=== PATIENT | female | born 1990 | race Caucasian/White ===

== ENCOUNTER 2017-01-24 18:01 | Emergency (ER) | payer OTHER ==
[2017-01-24 18:09] VITALS: BP 119/68; BMI 29.9
--- NOTE | 2017-01-24 18:10 | PDOC ---
History of Present Illness - General Chief Complaint: Sore Throat Stated Complaint: sore throat Time Seen by Provider: 01/24/17 18:10 - History of Present Illness Initial Comments: Chief complaint: Sore throat History of present illness: Patient with sore throat and difficulty swallowing for several days. and other family members with similar illness last week. Limited by mouth intake. Review of systems: No drooling, difficulty breathing, nausea or vomiting. No fevers/chills, chest pain, shortness of breath, abdominal pain. No visual or focal neurologic symptoms. Past medical history: Healthy female without significant contributing factors Social/family history reviewed and noncontributory Physical exam: Alert and oriented well-developed well-nourished no acute distress cooperative Afebrile, vital signs normal Appears mildly dehydrated with dry mucous membranes, but skin turgor is adequate. PERRLA, fundi benign, ENT exam reveals only mildly erythematous oropharynx. There is no swelling or mass in the peritonsillar or retropharyngeal area suggestive of an abscess. Neck supple without bruit mass or nodes Chest clear CV regular without murmur rub or gallop Abdomen benign Neurological intact Skin clear, no rash Impression: Sore throat, difficulty swallowing, by history, decreased by mouth intake. Mild dehydration Plan: Intravenous hydration, anti-inflammatory, throat culture and antibiotic treatment if indicated. Continued observation. Past History - Past Medical History Allergies/Adverse Reactions: Allergies Allergy/AdvReac Type Severity Reaction Status Date / Time No Known Allergies Allergy Verified 01/24/17 18:02 Home Medications: Ambulatory Orders Ibuprofen Oral Suspension [Motrin Oral Suspension -] 400 mg PO Q6H PRN #140 ml 01/24/17 Penicillin V Potassium [Pen Vee K -] 500 mg PO TID #30 tablet 01/24/17 Cancer: No CHF: No HTN: No Kidney Stones: No Liver Disease: No - Psycho/Social/Smoking Cessation Hx Anxiety: No Suicidal Ideation: No Smoking Status: No Smoking History: Never smoked Have you smoked in the past 12 months: No Number of Cigarettes Smoked Daily: 0 Information on smoking cessation initiated: No Hx Alcohol Use: No Drug/Substance Use Hx: No Substance Use Type: None *Physical Exam - Vital Signs Last Vital Signs Temp Pulse Resp BP Pulse Ox 99.1 F 110 H 18 119/68 98 01/24/17 18:02 01/24/17 18:02 01/24/17 18:02 01/24/17 18:02 01/24/17 18:02 Medical Decision Making - Medical Decision Making Strep culture is pending. Patient receiving intravenous fluids. Toradol seems to have eased the pain. Signed out to Dr. Guerra at 7 PM pending throat culture results and further therapy. *DC/Admit/Observation/Transfer Diagnosis at time of Disposition: Strep pharyngitis - Discharge Dispostion Disposition: HOME Condition at time of disposition: Stable - Prescriptions Prescriptions: Ibuprofen Oral Suspension [Motrin Oral Suspension -] 400 mg PO Q6H PRN #140 ml PRN Reason: Pain Penicillin V Potassium [Pen Vee K -] 500 mg PO TID #30 tablet - Patient Instructions Printed Discharge Instructions: Strep Throat Additional Instructions: Penicillin VK 500 mg 3 times a day for 10 days Motrin suspension 400 mg up to 4 times a day as needed for pain/fever Drink plenty of fluids Follow-up with your general doctor within the next 2-3 days Return to ER if you have persistent difficulty swallowing/severe pain/fever
[2017-01-24] MEDS ORDERED: SODIUM CHLORIDE 1,000 ML IV STA (18:41)
[2017-01-24] MEDS ORDERED: KETOROLAC TROMETHAMINE 30 MG/1 ML VIAL IVPUSH ONE (18:42)
[2017-01-24] MEDS ORDERED: KETOROLAC TROMETHAMINE 30 MG/1 ML VIAL ONE (18:47)
[2017-01-24 18:51] LABS: URINE APPEARANCE Clear; URINE BILIRUBIN Negative (NEGATIVE); URINE GLUCOSE (UA) Negative (NEGATIVE); URINE KETONE Trace (NEGATIVE); URINE LEUK ESTERASE Negative (NEGATIVE); URINE NITRITE Negative (NEGATIVE); URINE PROTEIN Trace (NEGATIVE); URINE UROBILINOGEN 0.2 E.U/dl (0.2-1.0)
[2017-01-24 18:58] LABS: URINE BLOOD 2+ (NEGATIVE)
[2017-01-24 18:59] LABS: URINE COLOR YELLOW
[2017-01-24 19:00] LABS: URINE BACTERIA FEW /hpf (NEGATIVE)
[2017-01-24] MEDS ORDERED: AMOXICILLIN 500 MG CAPSULE (FP) PO ONE (19:38)
[2017-01-24] MEDS ORDERED: AMOXICILLIN 250 MG CAPSULE ONE (19:41)
--- NOTE | 2017-01-24 19:46 | PDOC ---
*Physical Exam - Vital Signs Last Vital Signs Temp Pulse Resp BP Pulse Ox 99.1 F 110 H 18 119/68 98 01/24/17 18:02 01/24/17 18:02 01/24/17 18:02 01/24/17 18:02 01/24/17 18:02 ED Treatment Course - ADDITIONAL ORDERS Additional order review: Laboratory Results 01/24/17 18:44 Urine Color Yellow Urine Appearance Clear Urine pH 6.0 Ur Specific [place] 1.015 Urine Protein Trace Urine Glucose (UA) Negative Urine Ketones Trace Urine Blood 2+ H Urine Nitrite Negative Urine Bilirubin Negative Urine Urobilinogen 0.2 e.u/dl Ur Leukocyte Esterase Negative Urine RBC 5-10 Urine WBC 2-4 Ur Epithelial Cells Few Urine Bacteria Few Urine HCG, Qual Negative 01/24/17 18:44 Group A Strep Rapid Antigen - Final Throat - Medications Given in the ED: ED Medications Discontinued Medications Generic Name Dose Route Start Last Admin Trade Name Freq PRN Reason Stop Dose Admin Ketorolac Tromethamine 30 mg 01/24/17 18:42 01/24/17 18:53 Toradol Injection - IVPUSH 01/24/17 18:43 30 mg ONCE ONE Administration Progress Note - Progress Note Progress Note: Care of this patient received from Dr. Finch. Quick strep positive. Results discussed with the patient and her . Patient feeling much better after a liter of normal saline and 30 mg of Toradol IV. She states she is able to swallow much more easily after medication and hydration. First dose of 500 mg of amoxicillin given here. Patient asked for prescription for Motrin suspension which was transmitted to her pharmacy. Also, prescription for Penicillin VK 500 mg tid for 10 days sent to her pharmacy. Patient knows that she should return to the emergency room if she has worsening pain/fever or has drooling/severe difficulty swallowing. *DC/Admit/Observation/Transfer Diagnosis at time of Disposition: Strep pharyngitis - Discharge Dispostion Disposition: HOME Condition at time of disposition: Stable - Prescriptions Prescriptions: Ibuprofen Oral Suspension [Motrin Oral Suspension -] 400 mg PO Q6H PRN #140 ml PRN Reason: Pain Penicillin V Potassium [Pen Vee K -] 500 mg PO TID #30 tablet - Patient Instructions Printed Discharge Instructions: Strep Throat Additional Instructions: Penicillin VK 500 mg 3 times a day for 10 days Motrin suspension 400 mg up to 4 times a day as needed for pain/fever Drink plenty of fluids Follow-up with your general doctor within the next 2-3 days Return to ER if you have persistent difficulty swallowing/severe pain/fever
[2017-01-24 20:02] VITALS: PULSE 106; TEMP 98.4
== END 2017-01-24 20:01 | disposition home or self-care (01) ==
LOC: FER 18:01
PROC: 3E0333Z Introduction of Anti-inflammatory into Peripheral Vein, Percutaneous Approach (ICD-10-PCS; principal; 2017-01-24)
PROC: 3E0337Z Introduction of Electrolytic and Water Balance Substance into Peripheral Vein, Percutaneous Approach (ICD-10-PCS; 2017-01-24)
DX: J02.0 Streptococcal pharyngitis (principal)
CPT/HCPCS: 81003; 81015; 84703; 87070; 87077; 87430; 96361; 96374; 99282-25

== ENCOUNTER 2019-07-11 11:31 | Emergency (ER) | payer OTHER ==
--- NOTE | 2019-07-11 11:48 | PDOC ---
Attending Attestation - Resident Resident Name: Jemal Dickinson - ED Attending Attestation I have performed the following: I have examined & evaluated the patient, The case was reviewed & discussed with the resident, I agree w/resident's findings & plan, Exceptions are as noted
[2019-07-11 11:49] VITALS: BP 116/80; PULSE 88; TEMP 98; BMI 31.0
--- NOTE | 2019-07-11 11:59 | PDOC ---
History of Present Illness - General Chief Complaint: Sore Throat Stated Complaint: SORE THROAT SINCE YESTERDAY Time Seen by Provider: 07/11/19 11:37 History Source: Patient Exam Limitations: No Limitations - History of Present Illness Initial Comments: 07/11/19 11:49 28y F hx of Idiopathic intercranial hypertension presents with sore throat Since yesterday, the patient endorses a very mild runny nose and mild cough denies any fever. Her was just diagnosed with Strep throat this morning was treated. No recent travel. Patient able to tolerate oral intake ROS Constitutional - no reported Fever, Chills, HEENT: +sore throat no reported vision changes, Respiratory: no reported cough, sob, Cardiac: no reported chest pain, Abd/GI: no reported abd pain, nausea, vomiting, Musculskelatal - no reported back pain, joint swelling skin - no reported bruising, erythema, rash neurological: no reported headache, numbness, focal weakness, tingling, ataxia, hematologic: no reported easy bruising, easy bleeding Physicial exam GENERAL: The patient is awake, alert, and fully oriented, Nontoxic - in no acute distress. HEAD: Normocephalic, atraumatic. EYES: extraocular movements intact, sclera anicteric, conjunctiva clear. ENT: Normal voice, Moist mucous membranes. Mild erythema in posterior phayrynx , area of whitish exudate on R tonsil, symmetric and patent airway will treat for strep as pts had +rapid strep will have pt fu with PMD return precautions were dsicussed I discussed the physical exam findings, ancillary test results and final diagnoses with the patient. I answered all of the patient's questions. The patient was satisfied with the care received and felt comfortable with the discharge plan and treatment plan. The patient will call their primary care physician within 24 hours to arrange follow-up and will return to the Emergency Department with any new, persistent or worsening symptoms. Past History - Past Medical History Allergies/Adverse Reactions: Allergies Allergy/AdvReac Type Severity Reaction Status Date / Time No Known Allergies Allergy Verified 07/11/19 11:33 Home Medications: Ambulatory Orders Amoxicillin - [Amoxicillin 500mg Capsule -] 500 mg PO BID #20 capsule 07/11/19 acetaZOLAMIDE [Diamox -] 500 mg PO BID 07/11/19 Cancer: No COPD: No CHF: No HTN: No Kidney Stones: No Liver Disease: No Other medical history: idiopathic intracranial hypertension - Psycho Social/Smoking Cessation Hx Smoking Status: No Smoking History: Never smoked Have you smoked in the past 12 months: No Number of Cigarettes Smoked Daily: 0 Information on smoking cessation initiated: No Hx Alcohol Use: Yes (social) Drug/Substance Use Hx: No Substance Use Type: None *Physical Exam - Vital Signs Last Vital Signs Temp Pulse Resp BP Pulse Ox 98 F 88 18 116/80 98 07/11/19 11:32 07/11/19 11:32 07/11/19 11:32 07/11/19 11:32 07/11/19 11:32 Discharge - Discharge Information Problems reviewed: Yes Clinical Impression/Diagnosis: Strep throat Condition: Improved Disposition: HOME - Admission No - Follow up/Referral - Patient Discharge Instructions Patient Printed Discharge Instructions: DI for Strep Throat Additional Instructions: Return to the emergency department immediately with ANY new, persistent or worsening symptoms. You MUST call and follow up with your doctor tomorrow for further evaluation of your symptoms. Results were discussed with you. Please make sure your doctor reviews the results of your emergency evaluation. Your Emergency Department visit is not complete without a follow up with your doctor. If you had any xrays during your visit, it was read preliminarily by myself, a Radiologist will review it and if there are any additional findings we will call you. - Post Discharge Activity
== END 2019-07-11 12:16 | disposition home or self-care (01) ==
LOC: FER 11:31
DX: J02.0 Streptococcal pharyngitis (principal); I10 Essential (primary) hypertension
CPT/HCPCS: 99281-25

== ENCOUNTER 2019-08-24 11:38 | Emergency (ER) | payer OTHER ==
[2019-08-24 11:45] VITALS: BP 131/86; BMI 31.0
--- NOTE | 2019-08-24 11:59 | PDOC ---
History of Present Illness - General Chief Complaint: Sore Throat Stated Complaint: sore throat Time Seen by Provider: 08/24/19 11:57 - History of Present Illness Initial Comments: 08/24/19 11:59 HPI: 28 y/o F with hx of IIH presenting with sore throat and flu like symptoms. She states that today is the third day of symptoms including fever, rhinorrhea, congestion, GARCIA, muscle aches, fever, chills. She also reports pleuritic chest pain. She denies any SOB, n/v, abd pain, dysuria. She reports 2 children at home with diagnosed strep throat and being treated with abx. She tried motrin/ tylenol at home with minimal relief. PMHx: as noted above ROS: as noted SHx: Denies tobacco use; no alcohol use; no rec drugs Allergies: NKDA ROS: ROS negative unless otherwise noted in HPI PE: GENERAL: Awake, alert, and fully oriented, appears ill HEAD: No signs of trauma, normocephalic, atraumatic EYES: EOMI, sclera anicteric, conjunctiva clear ENT: Auricles normal inspection, hearing grossly normal, nares patent, oropharynx with posterior erythema. Moist mucosa NECK: Normal ROM, right SCM lymphadenopathy LUNGS: No increased work of breathing, symmetrical chest rise, clear to auscultation bilaterally, no wheezes, crackles or rhonchi HEART: tachycardia, regular rhythm, normal S1 and S2, no murmur, peripheral pulses 2+ and equal bilaterally. ABDOMEN: Soft, nondistended, nontender, normoactive bowel sounds. No guarding, no rebound. No masses. No CVAT MUSCULOSKELETAL: Normal inspection, FROM NEUROLOGICAL: Cranial nerves II through XII grossly intact. Normal speech, normal gait, no focal sensorimotor deficits SKIN: Warm, Dry, normal turgor, no rashes or lesions noted Past History - Past Medical History Allergies/Adverse Reactions: Allergies Allergy/AdvReac Type Severity Reaction Status Date / Time No Known Allergies Allergy Verified 08/24/19 11:39 Home Medications: Ambulatory Orders acetaZOLAMIDE [Diamox -] 250 mg PO BID 07/11/19 Acetaminophen [Tylenol] 650 mg PO QID #30 tablet 08/24/19 Ibuprofen [Motrin -] 600 mg PO QID #30 tablet 08/24/19 Cancer: No COPD: No CHF: No HTN: Yes (IDIOPATHIC INTRA CRANIAL HTN) Kidney Stones: No Liver Disease: No - Psycho Social/Smoking Cessation Hx Smoking Status: No Smoking History: Never smoked Have you smoked in the past 12 months: No Number of Cigarettes Smoked Daily: 0 Hx Alcohol Use: Yes (socially) Drug/Substance Use Hx: No Substance Use Type: None *Physical Exam - Vital Signs Last Vital Signs Temp Pulse Resp BP Pulse Ox 101.9 F H 122 H 20 131/86 100 08/24/19 11:38 08/24/19 11:38 08/24/19 11:38 08/24/19 11:38 08/24/19 11:38 Medical Decision Making - Medical Decision Making 08/24/19 20:12 28 y/o F with hx of IIH presenting with sore throat and flu like symptoms. Temp 101.9, HR 122. PE with erythema in posterior oropharynx. -rapid strep, rapid flu 08/24/19 20:12 -patient refusing IV; will give PO tylenol and po hydration 08/24/19 20:13 Flu + however patient is outisde window; will recommend synptomatic manamgenet with rest, tylenol and motrin Discharge - Discharge Information Problems reviewed: Yes Clinical Impression/Diagnosis: Influenza Condition: Stable Disposition: HOME - Additional Discharge Information Prescriptions: Acetaminophen [Tylenol] 650 mg PO QID #30 tablet Ibuprofen [Motrin -] 600 mg PO QID #30 tablet - Follow up/Referral - Patient Discharge Instructions Patient Printed Discharge Instructions: DI for Influenza -- Adult Additional Instructions: Additional Instructions: Please return to the emergency department with any new or worsening symptoms or concerns. Please follow up with your primary care physician within 72 hours for re- evaluation Please take motrin 600mg every 6 hours and tylenol 650mg every 6 hours for symptomatic management Please avoid vulnerable populations to decrease risk of transmission i.e. children, elderly, women, immunocompromised patients. - Post Discharge Activity Work/Back to School Note: Back to Work
[2019-08-24] MEDS ORDERED: ACETAMINOPHEN 1000 MG/100 ML VIAL (NON FORMULARY) IVPB ONE (12:24)
[2019-08-24] MEDS ORDERED: SODIUM CHLORIDE 1,000 ML IV STA (12:24)
[2019-08-24] MEDS ORDERED: ACETAMINOPHEN 500 MG TABLET (FP) ONE (12:36)
[2019-08-24] MEDS ORDERED: ACETAMINOPHEN 500 MG TABLET (FP) PO ONE ×2 (12:39→13:57)
[2019-08-24 14:02] VITALS: TEMP 99.1
--- NOTE | 2019-08-24 14:06 | PDOC ---
Attending Attestation - Resident Resident Name: Malgorzata Fraga - ED Attending Attestation I have performed the following: I have examined & evaluated the patient, The case was reviewed & discussed with the resident, I agree w/resident's findings & plan, Exceptions are as noted - HPI HPI: 08/24/19 14:06 Patient with flu symptoms for several days. Nasal and chest congestion, nonproductive cough. No vomiting or diarrhea. Subjective fever. - Physicial Exam PE: 08/24/19 14:07 Physical exam: Temperature 101.9, remainder vital signs normal. No tachypnea or dyspnea. Does not appear ill HEENT: Mild nasal congestion. Ears and throat clear Neck supple without bruit mass or nodes Chest clear to P and A bilaterally. No tachypnea or dyspnea. Abdomen benign Skin clear, no rash, adequate turgor and wet mucous membranes - Medical Decision Making 08/24/19 14:09 Assessment: Viral syndrome, probably flu. Rule out strep. Plan: Strep screen is negative. Flu swab was positive. Chest x-ray is clear Symptomatic treatment. Patient has been ill for approximately 3 days, so Tamiflu would probably be of little help. Discharged in no significant distress , respiratory or otherwise, to follow-up with primary physician, or return to ER symptoms worsen.
[2019-08-24 14:10] VITALS: PULSE 97
== END 2019-08-24 14:09 | disposition home or self-care (01) ==
LOC: FER 11:38
DX: J11.1 Influenza due to unidentified influenza virus with other respiratory manifestations (principal)
CPT/HCPCS: 87070; 87804; 87880; 99282-25

== ENCOUNTER 2019-10-29 06:32 | Emergency (ER) | payer OTHER ==
[2019-10-29 06:41] VITALS: BP 122/87; PULSE 92; TEMP 98.6; BMI 29.5
--- NOTE | 2019-10-29 06:57 | PDOC ---
History of Present Illness - General Chief Complaint: Pain, Acute Stated Complaint: COUGH,SORE THROAT HEADACHE Time Seen by Provider: 10/29/19 06:48 History Source: Patient Exam Limitations: No Limitations - History of Present Illness Initial Comments: 10/29/19 06:54 This is a 28-year-old female who has had 2 days of congestion upper respiratory nasal congestion and cough with sore throat. Patient denies any fevers. But said she has been taking Tylenol. Patient does have a history though of strep pharyngitis. And said it feels similar Allergies: as per nursing notes Past Medical History: Strep pharyngitis Social history: Lives with family. No smoking. No alcohol. No illicit drugs. Surgical history: None General: No fevers or chills, no weakness, no weight loss HEENT: No change in vision. No sore throat,. No ear pain, sore throat CardioVascular: no chest discomfort. No shortness of breath Respiratory:+ cough, or wheezing. Gastrointestinal: no nausea, vomiting, diarrhea or constipation, No rectal bleeding Genitourinary: No dysuria, hematuria, or frequency Musculoskeletal: No joint or muscle pain or swelling Neurologic: No headache, vertigo, dizziness or loss of consciousness Psychiatric: nor depression Skin: No rashes or easy bruising Endocrine: no increased thirst or abnormal weight change Allergic: no skin or latex allergy All other systems reviewed and normal GENERAL: The patient is awake, alert, and fully oriented, in no acute distress. HEENT:Head is normal with no signs of trauma. Throat: There is erythema the posterior oropharynx with a small amount of exudate Eyes: Pupils equal, round and reactive to light, Ears are normal. Neck is supple. + Bilateral submandibular lymphadenopathy. EXTREMITIES:atraumatic, Normal range of motion, no edema. NEUROLOGICAL: Normal speech, normal gait. PSYCH: Normal mood, normal affect. SKIN: Warm, Dry, normal turgor, no rashes or lesions noted. Assessment and plan: This is a 28-year-old female with history of strep pharyngitis in the past who comes in complaining of sore throat chills, cough, congestion. Rapid strep was sent. Care patient was transferred to Dr. Monica diaz at 7 AM Case discussed in detail with oncoming Emergency Physician including history, physical exam and ancillary studies. Oncoming Emergency Physician has assumed care for the patient and will complete the evaluation and treatment. Patient is aware of the plan. Pt is clinically unchanged and stable. Past History - Past Medical History Allergies/Adverse Reactions: Allergies Allergy/AdvReac Type Severity Reaction Status Date / Time No Known Allergies Allergy Verified 10/29/19 06:34 Home Medications: Ambulatory Orders acetaZOLAMIDE [Diamox -] 250 mg PO DAILY 07/11/19 Ibuprofen 600 mg PO Q4HWA PRN #20 tablet 10/29/19 Promethazine/Phenyleph/Codeine [[id number]-XL-[id number] Syrup] 1 - 2 tsp PO TID PRN #120 ml MDD 6 10/29/19 Cancer: No COPD: No CHF: No HTN: Yes (IDIOPATHIC INTRA CRANIAL HTN) Kidney Stones: No Liver Disease: No - Psycho Social/Smoking Cessation Hx Smoking Status: No Smoking History: Never smoked Have you smoked in the past 12 months: No Number of Cigarettes Smoked Daily: 0 Information on smoking cessation initiated: No Hx Alcohol Use: Yes (OCCAS.) Drug/Substance Use Hx: No Substance Use Type: None *Physical Exam - Vital Signs Last Vital Signs Temp Pulse Resp BP Pulse Ox 98.6 F 92 H 16 122/87 100 10/29/19 06:37 10/29/19 06:37 10/29/19 06:37 10/29/19 06:37 10/29/19 06:37 Discharge - Discharge Information Problems reviewed: Yes Clinical Impression/Diagnosis: Viral URI with cough Condition: Stable Disposition: HOME - Additional Discharge Information Prescriptions: Ibuprofen 600 mg PO Q4HWA PRN #20 tablet PRN Reason: Fever, headache, pain Promethazine/Phenyleph/Codeine [[id number] Syrup] 1 - 2 tsp PO TID PRN #120 ml MDD 6 PRN Reason: Cough, congestion - Follow up/Referral - Patient Discharge Instructions Patient Printed Discharge Instructions: DI for Viral Upper Respiratory Infection -- Adult - Post Discharge Activity Work/Back to School Note: Back to Work
--- NOTE | 2019-10-29 07:22 | PDOC ---
*Physical Exam - Vital Signs Last Vital Signs Temp Pulse Resp BP Pulse Ox 98.6 F 92 H 16 122/87 100 10/29/19 06:37 10/29/19 06:37 10/29/19 06:37 10/29/19 06:37 10/29/19 06:37 - Physical Exam 10/29/19 08:00 Strep screen is negative. Throat culture pending. Rest, symptomatic treatment, and follow-up if symptoms worsen. Fully ambulatory , comfortable at discharge to follow-up as directed. Discharge - Discharge Information Problems reviewed: Yes Clinical Impression/Diagnosis: Viral URI with cough Condition: Stable Disposition: HOME - Admission No - Additional Discharge Information Prescriptions: Ibuprofen 600 mg PO Q4HWA PRN #20 tablet PRN Reason: Fever, headache, pain Promethazine/Phenyleph/Codeine [[id number]-[id number] Syrup] 1 - 2 tsp PO TID PRN #120 ml MDD 6 PRN Reason: Cough or congestion - Follow up/Referral - Patient Discharge Instructions Patient Printed Discharge Instructions: DI for Viral Upper Respiratory Infection -- Adult - Post Discharge Activity Work/Back to School Note: Back to Work
[2019-10-29] MEDS ORDERED: IBUPROFEN 600 MG TABLET (FP) PO ONE ×2 (07:35→07:43)
[2019-10-29] MEDS ORDERED: guaiFENesin/D-METHORPHAN HB 10 ML UNIT-DOSE CUPS PO ONE (07:35)
[2019-10-29] MEDS ORDERED: guaiFENesin/D-METHORPHAN HB 10 ML UNIT-DOSE CUPS ONE (07:43)
== END 2019-10-29 07:50 | disposition home or self-care (01) ==
LOC: FER 06:32
DX: J06.9 Acute upper respiratory infection, unspecified (principal); B97.89 Other viral agents as the cause of diseases classified elsewhere; I10 Essential (primary) hypertension
CPT/HCPCS: 87070; 87880; 99282-25

== ENCOUNTER 2021-02-22 15:18 | Emergency (ER) | payer OTHER ==
[2021-02-22 15:29] VITALS: BP 159/85; PULSE 93; TEMP 99.1; BMI 29.5
[2021-02-22] MEDS ORDERED: IBUPROFEN 400 MG TABLET (FP) PO ONE ×2 (15:30→16:01)
== END 2021-02-22 16:28 | disposition home or self-care (01) ==
LOC: FER 15:18
DX: S93.402A Sprain of unspecified ligament of left ankle, initial encounter (principal)
CPT/HCPCS: 73610-TC-LT-FY; 73630-TC-LT; 99283-25

== ENCOUNTER 2022-02-12 03:44 | Emergency (ER) | payer OTHER ==
[2022-02-12 03:54] VITALS: BP 127/84; PULSE 117; TEMP 100.2; BMI 29.5
[2022-02-12] MEDS ORDERED: IBUPROFEN 600 MG TABLET (FP) PO ONE ×2 (04:01→04:02)
== END 2022-02-12 05:21 | disposition home or self-care (01) ==
LOC: FER 03:44
DX: S92.422A Displaced fracture of distal phalanx of left great toe, initial encounter for closed fracture (principal)
CPT/HCPCS: 73660-TC-LT-FY; 99284-25

== ENCOUNTER 2022-02-15 16:05 | Emergency (ER) | payer OTHER ==
[2022-02-15] MEDS ORDERED: ACETAMINOPHEN 325 MG TABLET (FP) PO ONE (16:16)
[2022-02-15] MEDS ORDERED: ACETAMINOPHEN 325 MG TABLET (FP) ONE (16:17)
[2022-02-15 16:22] VITALS: BP 117/82; PULSE 85; TEMP 99; BMI 32.5
== END 2022-02-15 16:28 | disposition home or self-care (01) ==
LOC: FER 16:05
DX: B34.9 Viral infection, unspecified (principal)
CPT/HCPCS: 99283-25

== ENCOUNTER 2023-08-27 17:17 | Emergency (ER) | payer OTHER ==
[2023-08-27 19:02] VITALS: BP 126/75; PULSE 78; RESP 16; TEMP 98.5; BMI 29.5
[2023-08-27 20:41] LABS: THROAT:GRP A STREP NOT DETECTED (NOTDETECTED)
== END 2023-08-27 20:20 | disposition home or self-care (01) ==
LOC: FER 17:17
DX: J02.9 Acute pharyngitis, unspecified (principal); R09.81 Nasal congestion; R05.9 Cough, unspecified; J06.9 Acute upper respiratory infection, unspecified; B97.89 Other viral agents as the cause of diseases classified elsewhere; Z20.822 Contact with and (suspected) exposure to COVID-19
CPT/HCPCS: 0241U-QW; 87651; 99283-25

== ENCOUNTER 2023-10-11 08:17 | Emergency (ER) | payer OTHER ==
[2023-10-11 08:23] VITALS: BP 115/84; PULSE 72; RESP 18; TEMP 98.4; BMI 28.6
[2023-10-11] MEDS ORDERED: IBUPROFEN 600 MG TABLET (FP) PO ONE (09:02)
[2023-10-11] MEDS ORDERED: ACETAMINOPHEN 325 MG TABLET (FP) ONE (09:02)
[2023-10-11] MEDS ORDERED: TETRACAINE 0.5% OPHTH SOLN 2 ML BOTTLE ONE (09:03)
[2023-10-11] MEDS ORDERED: PSEUDOEPHEDRINE HCL 30 MG TABLET ONE (09:03)
[2023-10-11] MEDS: TETRACAINE 0.5% OPHTH SOLN 2 ML BOTTLE OU ONE (09:05)
[2023-10-11] MEDS: IBUPROFEN 600 MG TABLET (FP) PO ONE (09:10)
[2023-10-11] MEDS: PSEUDOEPHEDRINE HCL 60 MG TABLET PO ONE (09:10)
[2023-10-11] MEDS: ACETAMINOPHEN 325 MG TABLET (FP) PO ONE (09:10)
[2023-10-11 12:36] LABS: THROAT:GRP A STREP NOT DETECTED (NOTDETECTED)
== END 2023-10-11 09:55 | disposition home or self-care (01) ==
LOC: FER 08:17
DX: J02.9 Acute pharyngitis, unspecified (principal); R05.9 Cough, unspecified; J06.9 Acute upper respiratory infection, unspecified; H10.32 Unspecified acute conjunctivitis, left eye; Z20.822 Contact with and (suspected) exposure to COVID-19
CPT/HCPCS: 0241U-QW; 87651; 99283-25

== ENCOUNTER 2024-06-26 10:59 | Emergency (ER) | payer OTHER ==
[2024-06-26 11:09] VITALS: BP 117/87; PULSE 98; RESP 18; TEMP 98.4; BMI 30.4
== END 2024-06-26 12:25 | disposition left against medical advice (07) ==
LOC: FER 10:59
DX: O26.899 Other specified pregnancy related conditions, unspecified trimester (principal); R10.9 Unspecified abdominal pain; Z3A.00 Weeks of gestation of pregnancy not specified
CPT/HCPCS: 81003; 81015; 84703; 87086; 87186; 99283-25

== ENCOUNTER 2024-06-28 09:04 | Emergency (ER) | payer OTHER ==
[2024-06-28 09:22] VITALS: BP 120/80; PULSE 78; RESP 20; TEMP 98.1; BMI 30.4
[2024-06-28 10:00] LABS: HEMATOCRIT 31.6 % (32.4-45.2); MCH 24.9 pg (25.7-33.7); MCHC 31.7 g/dl (32.0-36.0); MEAN CELL VOLUME 78.7 fl (80-96); MEAN PLT VOLUME 8.6 fl (7.5-11.1); PLATELET COUNT 379.2 10^3/uL (134-434); RBC 4.02 10^6/uL (3.60-5.2); RDW 16.7 % (11.6-15.6)
[2024-06-28 10:09] LABS: ALBUMIN 3.9 g/dl (3.4-5.0); BILIRUBIN,TOTAL 0.2 mg/dl (0.2-1); CALCIUM 8.6 mg/dl (8.5-10.1); CREATININE 0.9 mg/dl (0.6-1.3); POTASSIUM 4.3 mmol/L (3.5-5.1); TOT PROT 7.2 g/dl (6.4-8.2)
[2024-06-28 10:15] LABS: PLATELET ESTIMATE ADEQUATE
[2024-06-28] MEDS ORDERED: ACETAMINOPHEN INJECTION 100 ML ONE (10:28)
[2024-06-28] MEDS ORDERED: AMOX TR/POT CLAV 875MG/125MG TABLETS (FP) ONE (10:28)
[2024-06-28] MEDS: ACETAMINOPHEN 1000 MG/100 ML BAG IVPB ONE (10:44)
[2024-06-28] MEDS: AMOX TR/POT CLAV 875MG/125MG TABLETS (FP) PO ONE (10:44)
[2024-06-28 10:48] LABS: HCG,QUALITATIVE URINE POSITIVE
== END 2024-06-28 14:17 | disposition home or self-care (01) ==
LOC: FER 09:04
DX: O09.529 Supervision of elderly multigravida, unspecified trimester (principal); O20.9 Hemorrhage in early pregnancy, unspecified; O23.90 Unspecified genitourinary tract infection in pregnancy, unspecified trimester; B95.2 Enterococcus as the cause of diseases classified elsewhere; Z3A.00 Weeks of gestation of pregnancy not specified
CPT/HCPCS: 36415; 76817-TC; 80053; 81003; 84702; 84703; 85027; 86850; 86900; 86901; 87086; 87491; 87591; 99284-25; J0131

== ENCOUNTER 2024-07-04 16:37 | Emergency (ER) | payer OTHER ==
[2024-07-04 16:50] VITALS: BP 111/68; PULSE 78; RESP 18; TEMP 97.9; BMI 30.4
[2024-07-04] MEDS ORDERED: ACETAMINOPHEN 500 MG TABLET (FP) ONE (17:18)
[2024-07-04] MEDS: ACETAMINOPHEN 500 MG TABLET (FP) PO ONE (17:27)
[2024-07-04 18:00] LABS: HEMATOCRIT 29.6 % (32.4-45.2); HEMOGLOBIN 9.5 G/dL (10.7-15.3); MCH 25.3 pg (25.7-33.7); MCHC 32.1 g/dl (32.0-36.0); MEAN CELL VOLUME 78.9 fl (80-96); MEAN PLT VOLUME 8.3 fl (7.5-11.1); RBC 3.75 10^6/uL (3.60-5.2); RDW 16.1 % (11.6-15.6)
[2024-07-04 18:08] LABS: ALBUMIN 3.5 g/dl (3.4-5.0); BILIRUBIN,TOTAL 0.4 mg/dl (0.2-1); CALCIUM 8.7 mg/dl (8.5-10.1); CREATININE 1.2 mg/dl (0.6-1.3); POTASSIUM 4.4 mmol/L (3.5-5.1); TOT PROT 6.4 g/dl (6.4-8.2)
[2024-07-04 18:42] LABS: PLATELET COUNT 293.9 10^3/uL (134-434)
[2024-07-04 18:43] LABS: OVALOCYTE 2+; PLATELET ESTIMATE ADEQUATE
[2024-07-04 18:44] LABS: WHITE BLOOD COUNT 5.7 10^3/uL (4.0-10.8)
== END 2024-07-04 19:42 | disposition left against medical advice (07) ==
LOC: FER 16:37
DX: O20.0 Threatened abortion (principal)
CPT/HCPCS: 36415; 80053; 81003; 81015; 84702; 85027; 87086; 99283-25